=== PATIENT | female | born 1980 | race Caucasian/White ===

== ENCOUNTER 2018-08-07 15:34 | Emergency (ER) | payer OTHER ==
[~2018-08-07] VITALS: Ht 162.6 cm; Wt 103.0 kg
[~2018-08-07 15:34] MED LIST: ADVIL200 M1 PO; ALPRAZOLAM0.5 MG PO; BUPROPION XL150 MG PO; DEBLITANE0.35 MG PO; DOCUSATE SODIU100 MG PO; LISINOPRIL-HCT1 EACH PO; METOPROLOL SUC200 MG PO; PERCOCET 7.5-31 EACH PO; PRENATAL + DHA1 EACH PO; RA P-COL RITE1 EACH PO; SHAROBEL0.35 MG PO; TYLENOL EXTRA500 MG PO
[2018-08-07] MEDS ORDERED: AMLODIPINE BESY10 MG PO (16:08)
[2018-08-07] MEDS ORDERED: BRIMONIDINE TART5 M1 OD (16:09)
[2018-08-07] MEDS ORDERED: IRBESARTAN-HCT1 EACH PO (16:10)
[2018-08-07] MEDS ORDERED: ZOFRAN ODT4 MG PO (18:45)
[2018-08-07] MEDS ORDERED: CIPRO500 MG PO (18:45)
[2018-08-07] MEDS ORDERED: FLAGYL500 MG PO (18:45)
== END 2018-08-07 19:32 | disposition home or self-care (01) ==
LOC: ED 15:34
DX: K52.9 Noninfective gastroenteritis and colitis, unspecified (principal); Z87.891 Personal history of nicotine dependence; Z91.040 Latex allergy status; Z88.2 Allergy status to sulfonamides; Z79.899 Other long term (current) drug therapy
CPT/HCPCS: 74177; 80053; 81001; 83605; 83690; 84703; 85025; 96361; 96374; 99284; J2405; J7030; Q9967

== ENCOUNTER 2022-04-20 10:52 | Observation (INO) | payer OTHER ==
[~2022-04-20] VITALS: Ht 162.6 cm; Wt 132.6 kg
[~2022-04-20 10:52] MED LIST changes: +AMLODIPINE BESY10 MG PO; +BRIMONIDINE TART5 M1 OD; +CIPRO500 MG PO; +FLAGYL500 MG PO; +IRBESARTAN-HCT1 EACH PO; +ZOFRAN ODT4 MG PO
[2022-04-20] MEDS ORDERED: HYDROCHLOROTH12.5 MG PO (12:20)
[2022-04-20] MEDS ORDERED: LOSARTAN POTASS50 MG PO (12:20)
--- NOTE | 2022-04-20 18:43 | NUR ---
PT TRANSFERRED TO UNIT FROM ED. PT IS A/O, AMBULATES WELL. ADMISSION ASSESSMENT COMPLETED. RATES PAIN 8/10, PAIN MEDICATION GIVEN. ANTIBIOTIC RUNNING. CALL LIGHT WITHIN REACH.
--- NOTE | 2022-04-20 19:15 | NUR ---
THIS NURSE INTRODUCED SELF TO PATIENT. PATIENT LYING IN BED. PATIENT CLAIMS PAIN TO BE TOLERABLE AT THIS TIME. DENIES NEEDS. CALL LIGHT WITHIN REACH.
--- NOTE | 2022-04-20 20:00 | NUR ---
PT IS AWAKE AND RESTING IN BED . SHE IS TRYING TO GET ALL OF HER BOWEL PREP IN EARLY. EXPLAINED THE HAT IN THE TOILET FOR I & O'S. PT'S D5LR STARTED ON A NEW LINE AFTER ABX WAS COMPLETED.
--- NOTE | 2022-04-21 03:16 | NUR ---
Clear liquids removed from bedside table. Patient is NPO.
--- NOTE | 2022-04-21 04:31 | NUR ---
PATIENT HAS HAD OCCASIONAL ABDOMINAL PAIN AND NAUSEA. TREATED W/PRN NORCO, DILAUDID, AND ZOFRAN. PATIENT COMPLETED BOWEL PREP LAST NIGHT. HAS HAD SEVERAL LOOSE STOOLS FOLLOWING COMPLETION. RUNNING IV FLUIDS THROUGH IV IN RIGHT AC. HAS REMAINED ON RA. INDEPENDENT IN ROOM. HAS REMAINED NPO SINCE 0300.
--- NOTE | 2022-04-21 05:50 | CONS ---
[facility] [address] [place], [place] [address] Signed DATE OF CONSULTATION: 04/20/2022 CHIEF COMPLAINT: Periumbilical pain. HISTORY OF PRESENT ILLNESS: Caren is a 42-year-old obese female, who has undergone laparoscopic appendectomy, laparoscopic cholecystectomy and laparoscopic ectopic termination. For about four years now, she has had swelling at the umbilicus emanating off to the right side. She normally can push it back inside. On this occasion, it was quite painful and she could not push it back inside. She came to the emergency room for evaluation. She improved with Dilaudid and ketorolac. CT scan confirmed her incarcerated periumbilical incisional hernia. The fascial defect is around 2.5 to 3 cm in diameter. In the course, the herniated fat is much larger. Thankfully, it is not containing bowel. I have been asked to see her in the emergency room. We did note that her white count was normal. Her potassium was low, but also her liver function tests were elevated, I think from a steatosis. She is not aware of that finding. She also likes to drink a little bit wine each night after work. In the meantime, she is feeling better and she is being admitted to the medical floor. PAST MEDICAL HISTORY: Polycystic ovarian disease, hypertension, glaucoma, obesity, and anxiety. PAST SURGICAL HISTORY: Includes a laparoscopic appendectomy, laparoscopic cholecystectomy, laparoscopic ectopic termination, tonsillectomy, adenoidectomy, and IUD placement. SOCIAL HISTORY: She does not smoke, but she will have a little bit wine each night after work. She is and has two children. Her mother is Ellie Guerrero at #[phone]. Valencia Sin is her primary care provider. She prefers the [facility]. FAMILY HISTORY: None. REVIEW OF SYSTEMS: None. ALLERGIES: Sulfa and latex. MEDICATIONS: Alprazolam, amlodipine 10 mg p.o. daily, losartan 50 mg p.o. daily, hydrochlorothiazide Electronically Signed By: ROXANA PANDA MD 04/21/22 0550 PATIENT NAME: CAREN HAMMOND CONSULTATION DATE OF : 84 REPORT #: [id number] PHYSICIAN: ROXANA PANDA MD PCP: OTHER PCP REPORT IS CONFIDENTIAL AND NOT TO BE RELEASED WITHOUT AUTHORIZATION [facility] [address] [place], [place] [address] Signed 12.5 mg p.o. daily. PHYSICAL EXAMINATION: VITAL SIGNS: Blood pressure is , which improved after her pain medication. Heart rate 95, respiratory rate 16, temperature 98.5. She is 5 feet 4 inches at 127 kg with a body mass index of 48. GENERAL: Caren is a 42-year-old obese female, lying supine in her ER bed. She does not appear systemically ill or toxic at this time. She seems to be improved. LUNGS: Clear to auscultation bilaterally. HEART: Regular rate and rhythm without murmurs. ABDOMEN: Obese, but soft. I can feel the herniated mass just to the right of the umbilicus. I can see her previous surgical scars. We cannot reduce the hernia. LABORATORY DATA: Her white blood cell count 5.4, mean cell volume is 100, hemoglobin 14, neutrophils 70. Potassium 3.3, BUN 4 and creatinine 0.84, glucose 150. Total bilirubin 0.6, AST 484, ALT 352, alkaline phosphatase 89, albumin 3.8. Beta-hCG negative. COVID is positive, although she has no symptoms either now or in the last few weeks. Urinalysis is negative. RADIOGRAPHIC STUDIES: CT scan of the abdomen and pelvis is reviewed including the images and she does have a fatty liver with moderate stool in the ascending, transverse colon, along with the moderately large periumbilical hernia with containing fat. The fascial defect is around 3 x 2.5 cm. ASSESSMENT AND PLAN: Caren is a 42-year-old obese female with incarcerated symptomatic periumbilical incisional hernia. She has been admitted at this time and will be hydrated and replace the potassium. We normally have 4 anesthesia providers were down to 2. We are doing our best not to do emergent surgeries at night, particularly since we do have an OB Service and a Trauma Service. Nevertheless, it is not an absolute emergency repair tonight, we will plan on doing this tomorrow as case. I brought a brochure with me on hernias and we reviewed that together in detail. We reviewed the difference between a primary suture repair and a mesh repair. She understands there is risk including, but not limited to bleeding, infection, scarring, change in contour of the skin, damage to bowel, infection of mesh requiring removal, recurrent hernias, and chronic pain. She also understands that obesity is in the top 2 reasons the patient developed recurrent hernias. She has expressed understanding and would like to proceed. In the meantime, we will consult our Internal Medicine Service to review her chart and be available in case she has any troubles following surgery particularly with the obesity and fatty liver. Electronically Signed By: ROXANA PANDA MD 04/21/22 0550 PATIENT NAME: CAREN HAMMOND CONSULTATION DATE OF : 84 REPORT #: [id number] PHYSICIAN: ROXANA PANDA MD PCP: OTHER PCP REPORT IS CONFIDENTIAL AND NOT TO BE RELEASED WITHOUT AUTHORIZATION [address] [place] [address] Signed Roxana Panda MD [facility] /[id number] cc: ZAKIYA Roberts MD Copies: ROXANA PANDA MD ~ Electronically Signed By: ROXANA PANDA MD 04/21/22 0550 PATIENT NAME: CAREN HAMMOND CONSULTATION DATE OF : 84 REPORT #: [id number] PHYSICIAN: ROXANA PANDA MD PCP: OTHER PCP REPORT IS CONFIDENTIAL AND NOT TO BE RELEASED WITHOUT AUTHORIZATION
--- NOTE | 2022-04-21 06:38 | NUR ---
Patient in bed. Appears to be sleeping. Call light within reach.
--- NOTE | 2022-04-21 07:13 | NUR ---
REPORT RECEIVED FROM KOKI GARCÍA. PT RESTING IN BED WITH EYES OPEN. PT REPORTS 4/10 ABDOMINAL PAIN THAT IS WELL CONTROLED, PT DENIES NEED FOR ADDITIONAL PAIN MEDICATION AT THIS TIME. PT DENIES ADDITIONAL REQUESTS OR COMPLAINTS. CALL LIGHT WITHIN REACH. BED RAILS UP.
--- NOTE | 2022-04-21 07:41 | NUR ---
MORNING ASSESSMENT AND MEDICATION DUE. PT RESTING IN BED, AWAKE AND ALERT. PT OREINTED TO ALL. PT REPORTS 4/10 PAIN IN CENTRAL ABDOMEN AND CONTINUES TO DENY NEED FOR ADDITIONAL PAIN MEDICATION AT THIS TIME. IV ASSESSED, WNL, BRISK BLOOD RETURN NOTED. IV ABX STARTED (SEE MAR). IV FLUIDS ON HOLD THEY ARE NOT COMPATABLE WITH CEFTRAIXONE. PT REMAINS INDEPENDANT IN ROOM, STEADY ON FEET. PT REPORTS PAIN DOES NOT INCREASE WITH ACTIVITIES BUT DOES INCREASE WITH PRESSURE TO ABDOMEN. LUNG SOUNDS CLEAR. PT REPORTS OCCATIONAL DRY COUGH. OXGYEN SATURATION AT 97% ON ROOM AIR. I.S. PROVIDED AND INSTRUCTION COMPLETED. PT DEMONSTRATES USE OF I.S. REACHING 2250ML X5. HEART TONES REGULAR. PT DENIES NAUSEA. ABDOMEN SOFT BUT FOR FIRM AREA NEAR UMBLICUS, ALSO TENDER IN THIS AREA. BOWEL TONES HEARD ON LEFT SIDE ADN MILDY HYPOACTIVE ON RIGHT SIDE. NO ADDITIONAL NEEDS AT THIS TIME. MEDICATION GIVEN WITH A SMALL SIP OF WATER. PT TOELRATED WELL. CALL LIGHT WITHIN REACH. BED RAILS UP.
--- NOTE | 2022-04-21 09:25 | NUR ---
THIS RN TO ROOM TO CHECK ON PT. IV ABX COMPLETE. IV FLUIDS RESTARTED (SEE MAR). PT REPORTS 4/10 PAIN IN ABDOMEN AND DENIES NEED FOR ADDITIONAL PAIN MEDICAITON AT THIS TIME. VITAL SIGNS STABLE. MOUTH SWABS PROVIDED FOR COMPLAINTS OF DRY MOUTH WHICH PT STATES "REALLY HELPS." PT DENIES ADDITIONAL REQUESTS OR COMPLAINTS. CALL LIGHT WITHIN REACH. BED RAILS UP.
[2022-04-21] MEDS ORDERED: IBUPROFEN200 MG PO (10:03)
[2022-04-21] MEDS ORDERED: BENADRYL ALLERG25 MG PO (10:04)
--- NOTE | 2022-04-21 10:33 | NUR ---
PT CALL LIGHT ON. PT REQUESTS PAIN MEDICAITON. PT REPORTS 04/10 MID ABDOMINAL ACHING/CRAMPING PAIN. SEE MAR FOR MEDICATION GIVEN. PRE PROCEDURE CHEDCK LIST COMPLETED. PT DENIES NAUSEA BUT REQUESTS ZOFRAN WITH PAIN MEDICAITON STATING DILAUDID HAS MADE HER NAUSEOUS IN THE PAST. PT RESTING IN BED WATCHING TV. NO ADDITIONAL REQUESTS OR COMPLAINTS. CALL LIGHT WITHIN REACH. BED RAILS UP.
--- NOTE | 2022-04-21 11:06 | NUR ---
THIS RN TO ROOM TO CHECK ON PT. PT RESTING WITH EYES CLOSED. PT AWAKENS TO MOVEMENT IN ROOM STATING "I WAS REALLY OUT." PT REPORTS 3/10 PAIN IN MID ABDOMEN AT THIS TIME AND STATES PAIN IS WELL CONTROLLED. PT DENIES NEED FOR ADDITIONAL PAIN MEDICAITON AT THIS TIME. NO ADDITIONAL REQUESTS OR COMPLAINTS. CALL LIGHT WITHIN REACH. BED RAILS UP.
--- NOTE | 2022-04-21 11:15 | NUR ---
pt given pre surgical wipes. pt is independent and can do self
--- NOTE | 2022-04-21 11:33 | NUR ---
PT CALL LIGHT ON. IV PUMP ALARMING, DISTAL OCCLUSION. IV ASSESSED, WNL. BRISK BLOOD RETURN NOTED. IV FLUIDS RESTARTED. CHG PRE OP WIPES PROVIDED. PT AGREES TO SHOWER. HIBACLEANS SOAP ALSO PROVIDED, INSTRUCTIONS GIVEN AND PT VEBALIZES UNDERSTANDING. PT UP TO SHOWER INDEPENDANTLY. NO ASSISTANCE NEEDED. LINENS CHANGED. FRESH GOWN AND SOCKS PROVIDED. NO ADDITIONAL NEEDS. PT VERBALIZES UNDERSTANDING OF CALL LIGTH.
--- NOTE | 2022-04-21 12:14 | NUR ---
PT FINISHED WITH SHOWER. IV FLUIDS RESTARTED. DR. PANDA CALLED STATING PTS SURGERY MAY BE DELAYED. PT UPDATED ON PLAN OF CARE AND DR. PANDA TO BEDISDE TO DISCUSS PLAN OF CARE WITH PT. NO ADDITIONAL NEEDS AT THIS TIME. CALL LIGHT WITHIN REACH. PT REPORTS HER SHOWER FELT "REALLY GOOD."
--- NOTE | 2022-04-21 12:47 | NUR ---
DR. PANDA FINISHED WITH VISIT WITH PT. PT IN TEARS AND VERY UPSET. THERAPUTIC COMMUNICAITON DONE WITH PT. EDUCATION DONE REGARDING COVID POSITIVE TEST AND WHITE BLOOD CELL COUNT. PT VERBALIZES UNDERSTANDING AND CONTINUES TO REPORT SHE IS VERY UPSET AT HAVING TO GO THROUGH A BOWEL PREP WITH NO SURGERY. PT REQUESTS TO TALK WITH LANDFILL GRADER. RAMIRO, LANDFILL GRADER TO BEDSIDE TO TALK WITH PT. PT VERBALIZES UNDERSTANDING AND STATES SHE WOULD LIKE TO LEAVE NOW. IV DC'D PER PROTOCOL, GAUZE AND COBAN APPLIED. VITAL SIGNS STABLE. PT CONTINUES TO REPORT 4/10 PAIN IN ABDOMEN. DISCHARGE INSTURCTIONS REVEIWED WITH PT. PT VERBALIZES UNDERSTANDING OF INSTRUCTIONS AND WHEN TO RETURN TO THE ER WITH SYMPTOMS SHOULD WORSEN. PT DRESSES SELF AND IS WHEELED FROM MED/SURG. NO ADDITIONAL CONCERNS.
--- NOTE | 2022-04-21 13:01 | NUR ---
PT REPORTS 8/10 PAIN IN ABDOMEN "BECAUSE OF ALL THIS CRYING." AND REQUESTS PAIN MEDICAITON PRIOR TO DISCHRAGE. SEE MAR FOR MEDICATION GIVEN.
--- NOTE | 2022-04-21 15:55 | EKG ---
[facility] [address] [facility] [place], [place] [address] Signed Normal sinus rhythm Low voltage QRS Borderline ECG No previous ECGs available Confirmed by ADALI MOREIRA MD ([id number]) on 04/21/2022 3:55:07 PM Electronically Signed By: ADALI MOREIRA MD 04/21/22 1555 PATIENT NAME: KIM HAMMOND Electrocardiogram DATE OF : 84 PHYSICIAN: ADALI MOREIRA MD REPORT #: [id number] REPORT IS CONFIDENTIAL AND NOT TO BE RELEASED WITHOUT AUTHORIZATION
--- NOTE | 2022-04-21 16:38 | DS ---
[facility] [address] [place], [place] [address] Signed ADMISSION DATE: 04/20/2022 DISCHARGE DATE: 04/21/2022 FINAL DIAGNOSIS: Incarcerated periumbilical incisional hernia. PROCEDURE: CT scan of abdomen and pelvis. HISTORY OF PRESENT ILLNESS: Caren is a 42-year-old obese female with a body mass index of 48 with a history of polycystic ovarian disease, hypertension, glaucoma, obesity, and anxiety. She has noted this hernia for about four years. She has had previous laparoscopic surgeries through the umbilicus to include her appendectomy, cholecystectomy, and her ectopic . She can normally reduce the hernia. She was experiencing some increased pain in that area and could not reduce the hernia. She came to emergency room for evaluation. She had a normal white count. Her liver function tests were elevated more than likely from fatty liver. We later found out that she was COVID positive. I had been asked to admit her as a general surgeon on-call. I had come to see her here in the hospital. I was not particularly concerned about her incarcerated hernia, it certainly is there but it was not particularly tender. She felt that it was better. There are no local signs or symptoms of infection. The CT scan showed the fatty liver with some omentum through her 3 x 2.5 cm incisional hernia defect. In addition, her potassium was little low. HOSPITAL COURSE: Caren was admitted as above and hydrated and had her potassium replaced. We repeated the blood work today and her white count actually is now below normal. Her liver function tests are a little better. She tells me she has not experienced any COVID symptoms. We are currently in COVID surge and half of our ER staff is out with COVID and half of our OR staff is out with COVID as well. We are down from four anesthesia providers to two. We have been extremely busy taking care of other more urgent surgical issues. We were hoping we could help Caren at some point on this admission. We did put her through a bowel prep, which she tolerated very nicely. Since she is not an urgent case, her hospital policy is to wait 30 days for elective surgeries either from the timing of symptoms or from positive COVID test. I have reviewed this with Caren in detail. Of course, she is a bit anxious and concerned in that regard. Nevertheless, it is safest for her and the staff. In that regard, we are going to discharge her to home and we will have her follow up in the office in a few weeks and we will get her scheduled as an outpatient. She has expressed understanding and agrees with the above plan. Electronically Signed By: ROXANA DE PAZ MD 04/21/22 1638 PATIENT NAME: CAREN HAMMOND DISCHARGE SUMMARY DATE OF : 84 REPORT #: [id number] PHYSICIAN: ROXANA DE PAZ MD PCP: OTHER PCP REPORT IS CONFIDENTIAL AND NOT TO BE RELEASED WITHOUT AUTHORIZATION [facility] [address] [place] [id number] Signed Roxana De Paz MD [facility] /[id number] cc: ZAKIYA Roberts MD Copies: ROXANA DE PAZ MD ~ Electronically Signed By: ROXANA DE PAZ MD 04/21/22 1638 PATIENT NAME: CAREN HAMMOND DISCHARGE SUMMARY DATE OF : 84 REPORT #: [id number] PHYSICIAN: ROXANA DE PAZ MD PCP: OTHER PCP REPORT IS CONFIDENTIAL AND NOT TO BE RELEASED WITHOUT AUTHORIZATION
== END 2022-04-21 13:20 | disposition home or self-care (01) ==
LOC: ED 10:52 → MS 10:54 → ED 16:50 → MS 04-21 13:20
PROVIDERS: ADMIT Colon & Rectal Surgery; ATTEND Colon & Rectal Surgery
DX: K43.6 Other and unspecified ventral hernia with obstruction, without gangrene (principal); U07.1 COVID-19; K75.81 Nonalcoholic steatohepatitis (NASH); I10 Essential (primary) hypertension; E66.01 Morbid (severe) obesity due to excess calories; Z68.42 Body mass index [BMI] 45.0-49.9, adult; Z88.2 Allergy status to sulfonamides; Z91.040 Latex allergy status
CPT/HCPCS: 36415; 74177; 80053; 81001; 82728; 83540; 83550; 83690; 83735; 84100; 84134; 84703; 85025; 86255; 96372; 96375; 96376; A9270; C9803; G0378; J0696; J1170; J1650; J1885; J2405; J7121; Q9967; U0003